=== PATIENT | female | born 1950 | race Caucasian/White ===

== ENCOUNTER 2024-06-27 16:16 | Inpatient (IN) | payer MEDICARE, SELFPAY ==
[2024-06-27] VITALS (16 sets, daily range): BP systolic 133–202; BP diastolic 57–172; BMI 36.4
--- NOTE | 2024-06-27 15:50 | ED.GENMED ---
History of Present Illness
<Cameron Gerer Jr., PA-C - Last Filed: 06/27/24 16:38>
General
Chief Complaint: Heart Rate Problem
Source: patient and ambulance crew
Exam Limitations: none
Time Seen by Provider: 06/27/24 15:14
Nursing documentation reviewed up to this point in time: agreed with
History of Present Illness
History of Present Illness:
The patient is a 73-year-old female past medical history of asthma hypertension GERD presenting to the emergency department after being found to have a low heart rate in the primary care office to be centimeter to the ER. EMS transported her and
found her to be in potential heart block symptoms over the ER en route. She comes she has had some vague fatigue weakness over the past few months she has a sometimes she will feel shortness of breath and some chest tightness has had this for
ongoing months. Denies any specific worsening today. No history of arrhythmias in the past no history of devices.
Review of Systems
<Cameron Greer Jr., PA-C - Last Filed: 06/27/24 16:38>
Review of Systems
Allergies reviewed?: Yes
All Other Systems: ROS reviewed and negative except as documented in HPI and ROS
Phy Exam
<Cameron Greer Jr., PA-C - Last Filed: 06/27/24 16:38>
Physical Exam
Physical Exam:
GENERAL: Alert , in no apparent distress
EYE: pupils equal and reactive
NECK: Supple, no significant adenopathy.
ENT: o/p clr, mmm.
CARDIAC: Bradycardic regular
LUNGS: Clear breath sounds bilaterally, no acute respiratory distress, no wheezes/rales/rhonchi
ABDOMEN: Soft, without focal tenderness, no r/g, no cvat
NEUROLOGICAL: Alert and oriented, no focal neuro deficits
SKIN: Warm and dry, skin intact.
MUSCULOSKELETAL: No edema, well perfused.
PSYCH: Normal and appropriate interaction.
Course
<Cameron Greer Jr., PA-C - Last Filed: 06/27/24 16:38>
Orders/Labs/Results
Orders:
Orders
06/27/24 Dinner
NPO
Allow oral meds: No
Allow clear liquids: No
06/27/24 15:17
EKG [Electrocardiogram (*1)] Urgent
Reason for Study: Abnormal EKG
EKG- Treatment ONCE
06/27/24 15:28
0.9% Sodium Chloride 500 ml [Nss] 500 ml IV BOLUS
06/27/24 15:50
Complete Blood Count/With Diff Urgent
Comprehensive Metabolic Panel Urgent
Magnesium Urgent
NT-proBNP Urgent
PTT Urgent
TSH Urgent
Troponin I Urgent
06/27/24 16:04
Admit/Transfer Patient As Directed
Co-Sign Provider:
Level of Care: Inpatient admission
Assign to:: IVU
Physician / Group: CBC
Diagnosis: Heart block
Reason for Hospitalization: 2:1 heart block, symptomatic
Expected length of stay greater than two midnights?: Yes
ELOS- Estimated Length of Stay in days: 3
I certify the patient meets the requirements for IP care: Yes
PRN Pain Medication Management As Directed
May give lesser potent ordered pain med per pt: Yes
preference::
Protocol:: Medication orders for pain may be administered in a
manner that supports deferring to patient preference
when the pt is:
- Requesting an ordered lesser potent pain medication.
Least to most potent pain medications are defined
as: acetaminophen < NSAID < tramadol < opioids
(morphine, oxycodone, hydromorphone).
- Requesting a lesser dose of the same medication IF
ORDERED.
- Requesting a less intrusive route of administration
if both routes are prescribed by the provider (PO <
IV).
06/27/24 16:05
Code Status As Directed
Resuscitation Status: Full Code
06/27/24 16:06
Vancomycin [Vancocin] 1,000 mg 0.9% Sod Chloride 250 ml Irr [Nss Irrigation Bottle] 250 ml IRRIG CATH
Vancomycin [Vancocin] 1,500 mg 0.9% Sodium Chloride [Nss] 20 ml 0.9% Sodium Chloride 250 ml [Nss] 250 ml IV PRE PROCEDURE
Vancomycin Surgical Prophylaxis Indication: Allergy: PCN or B-Lactam
INT (Intravenous Needle Therapy) As Directed
Comment: #20 gauge IV catheter
Notify MD As Directed
Notify physician if: no consent on chart
Surgical Procedure As Directed
Surgical Procedure: PPM
06/27/24 16:09
Echo 2D MMode Color/Doppler Urgent
Reason for Study: Heart block
06/27/24 16:11
Bupivacaine Pf 0.5% [Sensorcaine 0.5% Single Dose] 30 ml .ROUTE .STK-MED ONE
Lidocaine 1% [Xylocaine 1%] 20 ml .ROUTE .STK-MED ONE
06/27/24 16:54
Compression Sleeves [Pneumatic Compression Sleeves] As Directed
Type: Knee high
INT (Intravenous Needle Therapy) As Directed
Intake/ Output As Directed
Frequency: Per unit guidelines
Weight As Directed
Frequency: Once
Type of Scale: Standing Scale
DX Deep Vein Thrombosis Video Routine
06/27/24 18:22
Activity As Directed
Activity Level: With Assistance
Abnormal Lab Results
06/27/24
15:50
MCHC 32.7 L g/dL
(33.0-37.0)
RDW 14.6 H %
(11.5-14.5)
Plt Count 429 H 10^3/uL
(130-400)
Absolute Monos (auto) 0.8 H 10^3/uL
(0.1-0.6)
BUN 18 H mg/dl
(7-17)
06/27/24 15:50
06/27/24 15:50
Vital Signs
Initial and Last Documented VS:
Initial Vital Signs
Pulse Resp Pulse Ox
42 19 98
06/27/24 15:15 06/27/24 15:15 06/27/24 15:15
Last Documented Vital Signs
Temp Pulse Resp BP Pulse Ox
98.2 F 76 16 193/85 97
06/27/24 19:09 06/27/24 21:03 06/27/24 21:03 06/27/24 19:26 06/27/24 19:09
<Colby Raymundo, DO - Last Filed: 06/27/24 21:13>
Orders/Labs/Results
Orders:
Orders
06/27/24 Dinner
NPO
Allow oral meds: No
Allow clear liquids: No
06/27/24 15:17
EKG [Electrocardiogram (*1)] Urgent
Reason for Study: Abnormal EKG
EKG- Treatment ONCE
06/27/24 15:28
0.9% Sodium Chloride 500 ml [Nss] 500 ml IV BOLUS
06/27/24 15:50
Complete Blood Count/With Diff Urgent
Comprehensive Metabolic Panel Urgent
Magnesium Urgent
NT-proBNP Urgent
PTT Urgent
TSH Urgent
Troponin I Urgent
06/27/24 16:04
Admit/Transfer Patient As Directed
Co-Sign Provider:
Level of Care: Inpatient admission
Assign to:: IVU
Physician / Group: CBC
Diagnosis: Heart block
Reason for Hospitalization: 2:1 heart block, symptomatic
Expected length of stay greater than two midnights?: Yes
ELOS- Estimated Length of Stay in days: 3
I certify the patient meets the requirements for IP care: Yes
PRN Pain Medication Management As Directed
May give lesser potent ordered pain med per pt: Yes
preference::
Protocol:: Medication orders for pain may be administered in a
manner that supports deferring to patient preference
when the pt is:
- Requesting an ordered lesser potent pain medication.
Least to most potent pain medications are defined
as: acetaminophen < NSAID < tramadol < opioids
(morphine, oxycodone, hydromorphone).
- Requesting a lesser dose of the same medication IF
ORDERED.
- Requesting a less intrusive route of administration
if both routes are prescribed by the provider (PO <
IV).
06/27/24 16:05
Code Status As Directed
Resuscitation Status: Full Code
06/27/24 16:06
Vancomycin [Vancocin] 1,000 mg 0.9% Sod Chloride 250 ml Irr [Nss Irrigation Bottle] 250 ml IRRIG CATH
Vancomycin [Vancocin] 1,500 mg 0.9% Sodium Chloride [Nss] 20 ml 0.9% Sodium Chloride 250 ml [Nss] 250 ml IV PRE PROCEDURE
Vancomycin Surgical Prophylaxis Indication: Allergy: PCN or B-Lactam
INT (Intravenous Needle Therapy) As Directed
Comment: #20 gauge IV catheter
Notify MD As Directed
Notify physician if: no consent on chart
Surgical Procedure As Directed
Surgical Procedure: PPM
06/27/24 16:09
Echo 2D MMode Color/Doppler Urgent
Reason for Study: Heart block
06/27/24 16:11
Bupivacaine Pf 0.5% [Sensorcaine 0.5% Single Dose] 30 ml .ROUTE .STK-MED ONE
Lidocaine 1% [Xylocaine 1%] 20 ml .ROUTE .STK-MED ONE
06/27/24 16:54
Compression Sleeves [Pneumatic Compression Sleeves] As Directed
Type: Knee high
INT (Intravenous Needle Therapy) As Directed
Intake/ Output As Directed
Frequency: Per unit guidelines
Weight As Directed
Frequency: Once
Type of Scale: Standing Scale
DX Deep Vein Thrombosis Video Routine
06/27/24 18:22
Activity As Directed
Activity Level: With Assistance
Abnormal Lab Results
06/27/24
15:50
MCHC 32.7 L g/dL
(33.0-37.0)
RDW 14.6 H %
(11.5-14.5)
Plt Count 429 H 10^3/uL
(130-400)
Absolute Monos (auto) 0.8 H 10^3/uL
(0.1-0.6)
BUN 18 H mg/dl
(7-17)
06/27/24 15:50
06/27/24 15:50
Vital Signs
Initial and Last Documented VS:
Initial Vital Signs
Pulse Resp Pulse Ox
42 19 98
06/27/24 15:15 06/27/24 15:15 06/27/24 15:15
Last Documented Vital Signs
Temp Pulse Resp BP Pulse Ox
98.2 F 76 16 193/85 97
06/27/24 19:09 06/27/24 21:03 06/27/24 21:03 06/27/24 19:26 06/27/24 19:09
<Cameron Greer Jr., PA-C - Last Filed: 06/27/24 16:38>
MDM/Problems Addressed
MDM/Problems Addressed:
73-year-old female presenting to the emergency department after being sent in for bradycardia prior to arrival. Has felt vague fatigue weakness some intermittent chest pain shortness of breath over the past few months. Denies specific significant
symptoms or severe symptoms at this time. Patient's initial EKG showing what appears to be Mobitz type II with 2-1 block. Case immediately discussed with cardiology who will come to see the patient. Blood pressure in the 190s over 50s heart rate
in the 40s. Normal pulse ox patient is conversational and comfortable. The patient was seen by cardiology and will take her to the Housing Counselor for pacemaker. Stable throughout ER stay
<Cameron Greer Jr., PA-C - Last Filed: 06/27/24 16:38>
*Critical Care Note
Total Time (30-74mins, 75-104mins- exclusive of procedures): Not Applicable
comment:
Critical care statement: A total of 40 minutes of critical care time was provided for this patient. This includes management of unstable vital signs, evaluation of the patient at bedside, reviewing the patient's pertinent medical records, discussion
with consultants, review of old EKGs and review of pertinent medical records. This time with separate from time utilized to perform the aforementioned documented procedures
ED Attending Note
<Cameron Greer Jr., PA-C - Last Filed: 06/27/24 16:38>
-
Portions of this chart may have been created with voice recognition software.� Occasional wrong word or��sound alike� substitutions may have occurred due to the inherent limitations of voice recognition software.
<Colby Raymundo DO - Last Filed: 06/27/24 21:13>
ED Attending Note
Patient seen and examined by attending physician: Yes
I performed a history and physical exam of patient and discussed management with resident, I reviewed resident's note and agree with documented findings and plan of care.: Yes
ED Attending Note:
I reviewed and agree with history and treatment plan by +. My exam revealed 73-year-old female with bradycardia. Blood pressure stable. EKG revealing secondary AV block, patient to Housing Counselor for pacemaker.
Discharge Plan
Departure
Patient Disposition: [facility]
Date of Disposition: 06/27/24
Time of Disposition: 16:27
Admit to: Telemetry
Admit to doctor: sophie
Presentation/result/management discussed w/ accepting MD/DO: Cardiology
Patient with high blood pressure during this ER visit?: Yes
Condition: Fair
Covid-19: Not Applicable
Discharge Problem:
Mobitz type 2 second degree heart block
Interventions
Interventions:
*Risk Screen - Suicide Last Done: 06/27/24 15:41
*General Assessment Last Done: 06/27/24 15:38
*Neglect/Abuse Screening Last Done: 06/27/24 15:41
ED- Fall Risk Assessment Last Done: 06/27/24 17:01
*ED COVID-19 Vaccine History Last Done: 06/27/24 15:38
*Nursing Disposition Last Done: 06/27/24 17:01
ED- Cardiac Assessment Last Done: 06/27/24 15:47
ED- Pulmonary Assessment Last Done: 06/27/24 15:46
Discharge Date and Time
Discharge Date/Time: 06/27/24 17:02
[2024-06-27 15:57] LABS: % Basophils 0.5 % (0-2); % Eosinophils 1.2 % (0-6); % Immature Granulocytes 0.4 % (0-0.5); % Lymphocytes 21.8 % (20.5-51.1); % Monocytes 8.3 % (1.7-9.3); % Neutrophils 67.8 % (42.2-75.2); Absolute Basophils 0.1 10^3/uL (0-0.2); Absolute Eosinophils 0.1 10^3/uL (0-0.7); Absolute Monocytes 0.8 10^3/uL (0.1-0.6); Absolute Neutrophils 6.3 10^3/uL (1.4-6.5); Hematocrit 37.6 % (37.0-47.0); Hemoglobin 12.3 g/dL (12.0-16.0); Mean Corp Hgb Conc. 32.7 g/dL (33.0-37.0); Mean Corpuscular Hgb 27.4 pg (27.0-31.0); Mean Corpuscular Volume 83.7 fL (81.0-99.0); Mean Platelet Volume 9.5 fL (7.4-10.4); Nucleated Red Blood Cells % 0 %; Platelet Count 429 10^3/uL (130-400); Red Blood Cell Count 4.49 10^6/uL (4.20-5.40); Red Cell Dist. Width 14.6 % (11.5-14.5); White Blood Cell Count 9.3 10^3/uL (4.8-10.8)
--- NOTE | 2024-06-27 16:10 | HPS.HSE ---
Addendum entered and electronically signed by Haider Mathew MD 06/27/24 16:38:
I saw and examined the patient.
The HEALTH AND WELLNESS MANAGER's note was reviewed and I agree with the note.
Comment: 73-year-old female with a past medical history of hypertension, hyperlipidemia and left bundle branch block followed by Dr. Carter and [facility], presenting for evaluation after seen by her primary care physician with a low heart rate it. She had
been endorsing symptoms of shortness of breath, lightheaded headedness and presyncope at times. She feels fine at rest. On exam she has a regular rate and rhythm with a normal S1-S2 2 out of 6 crescendo decrescendo murmur in the right upper
sternal border, lungs are clear to auscultation bilaterally extremities are warm well-perfused. EKG shows normal sinus rhythm with 2-1 AV block and left bundle branch block. 2-1 heart block with evidence of infra his centimeters disease with left
bundle branch block (chronic) that is symptomatic with episodes of near syncope, and fatigue. Will arrange for patient permanent pacemaker implantation. Of note, she is left-handed. Echocardiogram being done at the bedside now. She has a murmur
consistent with aortic stenosis, she does not recall being told of this diagnosis. Will evaluate on echo. Hypertension, will adjust medications as needed after pacemaker implantation.
Case discussed with Dr. Gamino. She will be transferred to Lead Person for pacemaker implantation this evening.
Original Note:
Family Physician
-
Family Physician: Yolis Medina MD
Chief Complaint
-
Low heart rate
History of Present Illness
Janki Pandya is a 73-year-old female with hypertension, asthma, dyslipidemia, GERD and former smoker who presented to the emergency department from her primary care physician for low heart rate. Over the past few months she has been endorsing
shortness of breath with fatigue. Sometimes she will have some chest tightness. She has been significantly fatigued and endorses multiple episodes of presyncope. If she walks too far she feels like she is going to pass out. Several times she has
barely made it to a chair. EKG in the emergency room shows 2:1 heart block. She has intermittent bouts of dizziness and lightheadedness. Labs are pending.
Medical History
Past Medical History
Past Medical History: Reports Asthma, GERD, HTN and Hypercholesterolemia
Past Surgical History: Reports Other
Social History
Tobacco: Former Smoker
Alcohol: None
Drug: None
Living: Alone
Employment: Retired
Family History
Family History: Not pertinent
Allergies / Home Medications
Allergies reflects when Allergies were last updated in [employer].
Home Medications with original date entered in [employer]
Allergy/Medication List:
Allergies:
Penicillins
Home medication list:
Albuterol sulfate 2 puffs every 6 hours as needed shortness of breath/wheezing
Alendronate 70 mg p.o. q. Wednesday
Amlodipine 2.5 mg p.o. every afternoon
Aspirin 81 mg p.o. every afternoon
Atorvastatin 80 mg p.o. every afternoon
Breyna 1 puff every evening
Metoprolol succinate 25 mg p.o. every afternoon
Nitrostat 0.4 mg sublingual every 3 hours x 3 as needed chest pain
Omeprazole 20 mg p.o. daily
Review of Systems
-
History Source: Patient
A 12 point ROS was completed and negative except as noted: Yes
Constitutional: Reports Fatigue
EENT: Reports No Symptoms
Respiratory: Reports See HPI
Cardiac: Reports See HPI
Abdomen/GI: Reports No Symptoms
: Reports No Symptoms
Musculoskeletal: Reports No Symptoms
Skin: Reports No Symptoms
Neurological: Reports See HPI
Endocrine: Reports No Symptoms
Hematologic/Lymphatic: Reports No Symptoms
Psych: Reports No Symptoms
Physical Exam
Vital Signs
Vital Signs
Temp Pulse Resp BP Pulse Ox
98.1 F 40 16 191/57 99
06/27/24 15:19 06/27/24 16:00 06/27/24 16:00 06/27/24 15:19 06/27/24 15:46
Physical Exam
General: Well Developed, Well Nourished, No Apparent Distress and Comfortable
HEENT: NormoCephalic, Anicteric and Moist mucous membranes
Respiratory: Clear and Non Labored Respirations
Cardiac: S1/S2, Regular Rhythm (Bradycardia) and Murmur (Systolic II/); No Peripheral Edema
Breast: Deferred by me
GI: Soft, Non Tender, Non Distended and Normal Bowel Sounds
Rectal: Deferred by Provider
Genito-urinary: No costovertebral tender
Musculoskeletal: No Clubbing and No Cyanosis
Skin: Warm and Dry
Neuro: AO x 3
Hematologic/Lymphatic: No Lymphadenopathy
Psych: Calm
Laboratory Results
-
06/27/24 15:50
Data Reviewed
-
Diagnostic Radiology: Report Reviewed by me (2:1 heart block, LBBB, rate 40)
Impression/Plan
-
BACKGROUND: 73F with hypertension, dyslipidemia, asthma, and GERD who presented with low heart rate from PCP office
2:1 heart block, symptomatic
-Presyncope, fatigue, and lightheadedness
-She has been n.p.o. since 10 AM
-Pacemaker recommendation reviewed with patient
-Post pacemaker placement activity restrictions reviewed with patient
Hypertension, follow postprocedure
Dyslipidemia, continue atorvastatin 80 mg
Asthma, stable without acute exacerbation
GERD, on omeprazole
SUBJECTIVE:
As above
[2024-06-27 16:21] LABS: ALT (SGPT) 27 U/L (0-35); AST (SGOT) 32 U/L (14-36); Albumin 4.4 g/dl (3.5-5.0); Alkaline Phosphatase 109 U/L (38-126); Blood Urea Nitrogen 18 mg/dl (7-17); Calcium 9.6 mg/dl (8.4-10.2); Carbon Dioxide 22 mmol/L (22-30); Chloride 103 mmol/L (98-107); Estimated Creatinine Clearance 78 ml/min; Glucose 97 mg/dl (70-99); Magnesium 2.1 mg/dl (1.6-2.3); Potassium 4.4 mmol/L (3.5-5.1); Sodium 140 mmol/L (135-145); Total Bilirubin 0.7 mg/dl (0.2-1.3); eGFR > 60.00
[2024-06-27 16:23] LABS: NT-proBNP 1330 pg/ml; Troponin I 0.013 ng/ml
[2024-06-27 16:43] LABS: TSH 1.08 uIU/ml (0.47-4.68)
--- NOTE | 2024-06-27 18:03 | ITS.CL.PACE ---
Assistant Restaurant General Manager - Pacemaker Implant
Pacemaker Implant
Procedure Report:
Dual Chamber Pacemaker Placement:
Ms. Xiong is a very pleasant 73 yrs old woman who presented with high degree AV block and syncope and is recommended for PPM placement.� Patient is a left-handed and prefers right-sided device.
Indications: AV block
Date of the Procedure: 06/27/24
Pre-Operative Diagnosis: AV block
Post-Operative Diagnosis: AV block
Procedure Performed: DUAL CHAMBER PACEMAKER IMPLANTATION
Performing Physician:
Abel Gamino MD
Assistants:
EP staff
Anesthesia:
See anethesia report
Pre-operative antibiotics:
Aztreonam and Vanco
Detailed Description of the Procedure:
The patient was identified using hospital identification and informed consent obtained for the procedure. The risks were explained including, but not limited to: Bleeding, infection, arrhythmia, stroke, vascular/cardiac/lung puncture, surgery,
pacemaker dependency/device malfunction. All questions were answered.
The patient was brought to the electrophysiology laboratory in stable condition in fasting state. Continuous electrocardiographic and hemodynamic monitoring was initiated.
The initial rhythm was sinus with AV block and junctional escape in the 30s-40s.
A surgical pause and time out was performed immediately prior to the procedure with review of her medical history, recent labs, allergies and medications with site of procedure identified and consent noted in the chart. Antibiotics pre operatively
given. All team members concurred.
The procedure site was meticulously prepared with surgical scrub and allowed to dry with no pooling. Sterile draping was applied to cover the procedure site. The image intensifier was draped with sterile bag and positioned over the patient.
The right infraclavicular region was prepped and draped in the usual sterile fashion. Local anesthesia was administered subcutaneously using 1% lidocaine / Bupivacaine. The right cephalic vein cutdown was performed with an incision at the
delto-pectoral groove, and vascular sheaths were introduced for lead access. These were advanced into the right ventricle and the right atrium.
The right ventricular lead was secured in position with an active fixation technique at the septal location.
The RA lead was attached in the right atrial appendage with active fixation.
There was excellent sensing, pacing, and impedance from the leads, with no diaphragmatic stimulation at 10 V output.�Bovie cautery, antibiotics, and fluoroscopy were used.
The sheaths were withdrawn, and the thresholds remained acceptable. The leads were secured in position at the venous entry site with 2-0 Ethibond suture. A pocket was fashioned contiguous to the incision. The electrode terminals were connected to
the pulse generator, which was placed into the pocket.
The device was anchored to the underlying fascia using 2-0 Ethibond suture.
The wound was irrigated thoroughly with antibiotic solution.
The wound was closed in 3 layers using 2-0 V loc then two layers of 4-0 V loc sutures to the dermis. Steri-strips were applied externally and covered with Aquacel bandage.
Procedure End:
The procedure was tolerated well.
Estimated Blood loss:
10 cc
Specimens Removed:
No cultures and no specimens were obtained. No intraoperative pathology was identified.
Fluoro time:
3.6 min / 3.19mGy
Urine output:
None
Packs / Drains/ Tubes:
None
Instrument / Sponge Count Correct:
Yes
Complications of the Procedure:
None
Condition of Patient at Time of Transfer:
Hemodynamically stable with no neurological or vascular compromise.
Device information:�
Generator: [employer]; Model: W1DR01; Serial # [id number]
Atrial Lead:
[employer]; Model: 5076-45; Serial # [id number]
Measured data in the right atrium was sensing of 2.4 mV, impedance of 551 ohms and threshold of 1.0 V at 0.4ms.
RV Lead:
[employer]; Model: 5076-58; Serial # [id number]
Measured data in the RV lead was sensing of 5.4mV, impedance of 646 ohms and threshold of 0.5 V at 0.4ms�
Sharath parameter settings were DDD 60-130 bpm. �
����������� Mode Switch: On
����������� Paced AV interval: 180ms
����������� Sensed AV interval: 150 ms.
����������� Rate Adaptive A-V Interval: On
Output parameters:
����������������������� Amplitude (V)������������� Pulse Width (ms)������� Sensitivity (mV)
����������� RA: ���� 3.5 ����������������� ����������� 0.4������������������ ����������� 0.3
����������� RV:����� 3.5������������������ ����������� 0.4������������������ ����������� 0.9
Summary:
Successful implantation of MRI compatible dual chamber [employer] pacemaker
Results/Recommendations:
-Please follow up CXR�
1. Please provide patient with adequate pain control�
Instructions to be given to patient:�
- Please follow up with [facility] at [address] [place] [address] ([phone]) to get your wound checked within 14 days of your discharge.
- Do not wet incision site until after it is evaluated at cardiology clinic. No soaking or bath until then. Showers or Sponge baths are OK.�Dab dry the area after a shower.
- Do not lift right elbow above shoulder, particularly with sudden jerking movements, for 1 month�
- Do not lift anything weighing more than 10 pounds with the right arm for 1 month�
- If you notice any fevers, shortness of breath, lightheadedness, chest pain, or worsening swelling in the wound site, please contact the arrhythmia clinic, contact your rehabilitation liaison, or present to the hospital for evaluation.�
Abel Gamino MD
Electrophysiology
--- NOTE | 2024-06-27 19:13 | PTCARENOTE ---
Rec'd pt from laborer heading with elevated bp and on TELE monitor in NSR. Pt with R upper chest wall dressing CDI. Pt verbalized understanding of R arm restrictions and is sitting in bed with R arm immobilizer on. Pt maintaining bed rest with call berry
in reach.
[2024-06-27] MEDS: TOPROL XL 25 MG PO (19:25)
[2024-06-27] MEDS: NORVASC 2.5 MG PO (19:26)
[2024-06-27] MEDS: LIPITOR 80 MG PO (19:47)
[2024-06-27] MEDS: ASPIR LOW (ENTERIC COATED) 81 MG PO (19:47)
[2024-06-27] MEDS: PROTONIX 40 MG PO (19:48)
[2024-06-27] MEDS: SYMBICORT 160/4.5 MCG INHALER 1 PUFF INH (21:00)
--- NOTE | 2024-06-27 21:14 | PTCARENOTE ---
Received pt at change of shift. POC discussed pt verbalized understanding- sent down for CXR. R arm immobilizer in place. BP elevated will reevaluate after 1999 Meds. R Bryson CDI- pt reports no pain.
[2024-06-28] VITALS (11 sets, daily range): BP systolic 130–205; BP diastolic 68–88
[2024-06-28] MEDS: TYLENOL 650 MG PO ×4 (04:14→17:16)
[2024-06-28 04:35] LABS: Hematocrit 34.2 % (37.0-47.0); Hemoglobin 11.2 g/dL (12.0-16.0); Mean Corp Hgb Conc. 32.7 g/dL (33.0-37.0); Mean Corpuscular Hgb 27.1 pg (27.0-31.0); Mean Corpuscular Volume 82.6 fL (81.0-99.0); Mean Platelet Volume 9.5 fL (7.4-10.4); Platelet Count 334 10^3/uL (130-400); Red Blood Cell Count 4.14 10^6/uL (4.20-5.40); Red Cell Dist. Width 14.5 % (11.5-14.5)
[2024-06-28 04:50] LABS: Blood Urea Nitrogen 17 mg/dl (7-17); Calcium 9.1 mg/dl (8.4-10.2); Carbon Dioxide 23 mmol/L (22-30); Chloride 107 mmol/L (98-107); Estimated Creatinine Clearance 91 ml/min; Glucose 99 mg/dl (70-99); Magnesium 2.1 mg/dl (1.6-2.3); Potassium 4.1 mmol/L (3.5-5.1); Sodium 140 mmol/L (135-145); eGFR > 60.00
--- NOTE | 2024-06-28 08:18 | W.PN.CARDCBS ---
Addendum entered and electronically signed by Abel Gamino MD 06/28/24 08:49:
Patient seen and evaluated personally. I agree with the note, documentation and plan of care as below.
73-year-old woman with a history of hypertension asthma, hyperlipidemia presented with complete heart block status post dual-chamber pacemaker implantation on 06/27/2024 ([employer])
Patient blood pressure is poorly controlled. Patient is home dose amlodipine 2.5 mg is increased to 5 mg once a day and we will add hydrochlorothiazide 25 mg once a day. Patient wants to go home today. If blood pressure improved she can be
discharged home with continued monitoring of blood pressure at home.
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 Carter.
Addendum entered and electronically signed by ALEX Ng 06/28/24 08:45:
Echo - NL EF no WMA, mod , mild AR, mild-mod RI, mod-severe pulmonary HTN
on exam II/ SUSAN
Original Note:
Today's Communication / Plan
-
post PPM site stable
BP remains elevated, titrate meds and monitor
If improved later today, poss d/c home today vs tomorrow
Impression / Plan
-
PCP: Dr. Carter ([facility] cards)
CDY: Dr. Medina
BACKGROUND: 73F with hypertension, dyslipidemia, asthma, and GERD who presented with low heart rate from PCP office
2:1 heart block, symptomatic
Post DC PPM, no further lightheadedness
tele [facility], CXR no PTX, site stable
Activity restrictions reviewed
inc check 1 week at [facility], continue cardiac care with Dr. Carter
Hypertension - significantly elevated o/n, will increase amlodipine to 5mg daily and add HCTZ 25mg
monitor trends today, check BMP in 1 week
Dyslipidemia, continue atorvastatin 80 mg
Asthma, stable without acute exacerbation
GERD, on omeprazole
TEDDY/CPAP
If BP improves, poss d/c home later this afternoon or tomorrow
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
Subjective
Date of Service: June 28, 2024
no cp, sob, mild inc pain
Objective
Labs:
06/28/24 04:11
06/28/24 04:11
Labs
Hgb 11.2 g/dL (12.0-16.0) L 06/28/24 04:11
Hct 34.2 % (37.0-47.0) L 06/28/24 04:11
Plt Count 334 10^3/uL (130-400) D 06/28/24 04:11
APTT 27.0 Sec (23.4-35.0) 06/27/24 15:50
Sodium 140 mmol/L (135-145) 06/28/24 04:11
Potassium 4.1 mmol/L (3.5-5.1) 06/28/24 04:11
BUN 17 mg/dl (7-17) 06/28/24 04:11
Creatinine 0.6 mg/dL (0.6-1.0) 06/28/24 04:11
Glucose 99 mg/dl (70-99) 06/28/24 04:11
Troponins
06/27/24
15:50
Troponin I 0.013
Vital Signs and I&O:
Vital Signs
Temp Pulse Resp BP Pulse Ox
97.9 F 63 20 205/69 98
06/28/24 07:17 06/28/24 07:50 06/28/24 07:17 06/28/24 07:50 06/28/24 07:59
Vital Signs
Temp Pulse Resp BP Pulse Ox
97.9 F 63 20 205/69 98
06/28/24 07:17 06/28/24 07:50 06/28/24 07:17 06/28/24 07:50 06/28/24 07:59
Physical Exam
Physical Exam
NAD< AOX3
S1, S2, RRR
CTAB< non labored
SNTND Bsx4
R CW dressing c/d/i no HT
[2024-06-28] MEDS: NORVASC 5 MG PO (08:28)
[2024-06-28] MEDS: ORETIC 25 MG PO (08:29)
--- NOTE | 2024-06-28 13:05 | CM ---
Chart reviewed. Patient is independent of ADLS, lives alone in a 2nd floor condo, [address], 0 [address]. Plan is for the patient to return home. CM to follow
[2024-06-28] MEDS: TOPROL XL 25 MG PO (17:16)
[2024-06-28] MEDS: ASPIR LOW (ENTERIC COATED) 81 MG PO (17:16)
[2024-06-28] MEDS: LIPITOR 80 MG PO (17:16)
[2024-06-28] MEDS: PROTONIX PO (17:29)
--- NOTE | 2024-06-28 18:06 | PTCARENOTE ---
Pt seen by and Taisha Mederos NP. amlodipine and HCTZ given for elevated BP's, some improvement noted, pt will record BP's at home and bring log to her next cardiology appointment. Telemetry and IV device removed. Discharge instructions
reviewed with pt and her sister regarding driving and activity guidelines, wound care, pain management, medications and their possible side effects, lab tests, reporting cares and concerns and follow up appointments. Very good understanding taught
back to this RN. Pt escorted out via wheelchair and discharged to home.
--- NOTE | 2024-06-29 07:36 | W.DS.TRANS ---
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
-
Discharge Instructions:
Discharge Diagnosis/Procedures Heart block post Pacemaker implant
Diet Low Cholesterol
Driving Restrictions No driving for 1 week
Bathing Restrictions OK to Shower
Blood Work Check BMP in 1 week
Instructions:
Stand-Alone Forms: DC Inst - Implanted Device
Changes to Home Medications: Yes
Discharge Medications:
DC Medications w/original date entered in [employer]
albuterol sulfate 90 mcg/actuation aerosol inhaler (Ventolin HFA) 2 puff inhalation R [id number] PRN sob/wheezing 06/27/24
alendronate 70 mg tablet 70 mg PO LIVE 06/27/24
aspirin 81 mg tablet,delayed release 81 mg PO QPM Blood Clot Prevention/Tx 06/27/24
atorvastatin 80 mg tablet 80 mg PO QPM High Cholesterol 06/27/24
budesonide-formoterol HFA 160 mcg-4.5 mcg/actuation aerosol inhaler (Breyna) 1 puff inhalation R QPM Lung/Breathing Issues 06/27/24
metoprolol succinate 25 mg tablet,extended release 24 hr 25 mg PO QPM Heart Disease/Condition 06/27/24
nitroglycerin 0.4 mg sublingual tablet (Nitrostat) 0.4 mg sublingual [id number] PRN chest pain 06/27/24
omeprazole 20 mg capsule,delayed release 20 mg PO QPM Gastrointestinal Issue 06/27/24
amlodipine 5 mg tablet 5 mg PO DAILY #90 tabs 06/28/24
hydrochlorothiazide 25 mg tablet 25 mg PO DAILY #90 tabs 06/28/24
Home Medication Changes
increased amlodipine to 5mg and new to HCTZ 25mg
Pending Results: No
[2024-06-29 21:10] LABS: Hepatitis C Antibody Negative (Negative)
== END 2024-06-28 18:01 | disposition home or self-care (01) | DRG 244 ==
LOC: IVU 16:16
PROVIDERS: Internal Medicine Cardiovascular Disease; Nurse Practitioner Adult Health; Physician Assistant; ADMITTING PHYSICIAN Internal Medicine Cardiovascular Disease; EMERGENCY PHYSICIAN Emergency Medicine; FAMILY PHYSICIAN Family Medicine
PROC: 0JH606Z Insertion of Pacemaker, Dual Chamber into Chest Subcutaneous Tissue and Fascia, Open Approach (ICD-10-PCS; 2024-06-27)
PROC: 02HK3JZ Insertion of Pacemaker Lead into Right Ventricle, Percutaneous Approach (ICD-10-PCS; 2024-06-27)
PROC: 02H63JZ Insertion of Pacemaker Lead into Right Atrium, Percutaneous Approach (ICD-10-PCS; 2024-06-27)
DX: I44.1 Atrioventricular block, second degree (principal); I44.7 Left bundle-branch block, unspecified; I10 Essential (primary) hypertension; E78.00 Pure hypercholesterolemia, unspecified; J45.909 Unspecified asthma, uncomplicated; K21.9 Gastro-esophageal reflux disease without esophagitis; G47.33 Obstructive sleep apnea (adult) (pediatric); I27.20 Pulmonary hypertension, unspecified; I35.0 Nonrheumatic aortic (valve) stenosis; I37.1 Nonrheumatic pulmonary valve insufficiency; Z87.891 Personal history of nicotine dependence; Z79.82 Long term (current) use of aspirin; Z79.899 Other long term (current) drug therapy
CPT/HCPCS: 33208; 71045; 80048; 80053; 83735; 83880; 84443; 84484; 85025; 85027; 85730; 86803; 93005; 93306; 94640; 99285; C1785; C1892; C1898